=== PATIENT | female | born 1985 | race Caucasian/White ===

== ENCOUNTER 2019-04-10 16:33 | Inpatient (IN) | payer BC ==
[~2019-04-10] VITALS: Ht 162.6 cm; Wt 98.1 kg
[2019-04-10] MEDS ORDERED: AZITHROMYCIN 500 MG TABLET PO ONE (17:00)
[2019-04-10] MEDS ORDERED: PLEASE ENTER ALLERGIES MC SCH (17:00)
[2019-04-10] MEDS ORDERED: BETAMETHASONE 6 MG/ML, 5ML IM SCH (17:00)
[2019-04-10] MEDS ORDERED: BETAMETHASONE 6 MG/ML, 5ML IM ONE (17:01)
[2019-04-10] MEDS ORDERED: AZITHROMYCIN 500 MG TABLET ONE (17:01)
[2019-04-10 17:28] LABS: BASOPHILS # (AUTO) 0.03 x10^3/uL (0-0.1); BASOPHILS % (AUTO) 0 % (0-1); EOSINOPHILS % (AUTO) 2 % (1-7); LYMPHOCYTES # (AUTO) 2.02 x10^3/uL (1-3.4); LYMPHOCYTES % (AUTO) 24 % (22-44); MD NO; MEAN CORPUSCULAR HEMOGLOBIN 32.7 pg (27.0-34.8); MEAN CORPUSCULAR HGB CONC 33.7 g/dL (32.4-35.8); MEAN CORPUSCULAR VOLUME 97.1 fL (80-100); MONOCYTES # (AUTO) 0.44 x10^3/uL (0.2-0.8); MONOCYTES % (AUTO) 5 % (2-9); NEUTROPHILS % (AUTO) 69 % (42-75); PLATELET COUNT 356 x10^3/uL (130-400); RED BLOOD COUNT 3.97 x10^6/uL (3.82-5.3); RED CELL DISTRIBUTION WIDTH 12.7 % (9.6-15.2)
[2019-04-10] MEDS: LACTATED RINGERS 1,000 ML IV SCH ×2 (17:48→23:16)
[2019-04-10] MEDS ORDERED: AMPICILLIN 2 GM in SODIUM CHLORIDE 0.9% 100 ML IV SCH ×2 (18:00→18:49)
[2019-04-10 18:06] LABS: MICROSCOPIC INDICATED
[2019-04-10 18:18] VITALS: BP 115/70
[2019-04-10] MEDS ORDERED: MAGNESIUM SULF. PMX 20GM/500ML 500 ML IV SCH (19:46)
[2019-04-10] MEDS ORDERED: LACTATED RINGERS 1,000 ML IV PRN (19:47)
[2019-04-10] MEDS ORDERED: MAGNESIUM SULFATE PMX 4GM/100M 100 ML ONE (19:49)
[2019-04-10] MEDS ORDERED: MAGNESIUM SULFATE PMX 2GM/50ML 50 ML ONE (19:49)
[2019-04-10] MEDS ORDERED: MAGNESIUM SULFATE PMX 4GM/100M 100 ML IVPB ONE (20:00)
[2019-04-10] MEDS ORDERED: MAGNESIUM SULFATE PMX 2GM/50ML 50 ML IVPB ONE (20:00)
[2019-04-10] MEDS: metFORMIN XR 500 MG TAB.ER.24H PO SCH (21:06)
[2019-04-10] MEDS ORDERED: OXYTOCIN 30U/ 0.9% NaCL 500ML 500 ML ONE (22:42)
[2019-04-10] MEDS ORDERED: LIDOCAINE 1%, 20ML ONE (22:42)
[2019-04-10] MEDS ORDERED: MISOPROSTOL 200 MCG TABLET ONE (22:43)
[2019-04-10] MEDS ORDERED: FENTANYL/BUPIV./NS/PF 250 ML EPIDCONT SCH (22:47)
[2019-04-10 22:54] VITALS: BP 111/69
[2019-04-10] MEDS ORDERED: BUPIVACAINE 0.25% ONE (23:16)
[2019-04-10] MEDS ORDERED: LIDOCAINE/PF 1.5% EPI 1:200K, 10 ML ONE (23:20)
[2019-04-11] MEDS ORDERED: SIMETHICONE 80 MG CHEW TAB PO PRN (01:30)
[2019-04-11] MEDS ORDERED: ONDANSETRON 2MG/ML, 2ML IV PRN (01:30)
[2019-04-11] MEDS ORDERED: IBUPROFEN 600 MG TABLET PO PRN (01:30)
[2019-04-11] MEDS ORDERED: BISACODYL 10 MG SUPP PR PRN (01:30)
[2019-04-11] MEDS ORDERED: MISOPROSTOL 200 MCG TABLET PR PRN (01:30)
[2019-04-11] MEDS ORDERED: CALCIUM CARBONATE 500 MG TAB.CHEW PO PRN (01:30)
[2019-04-11] MEDS ORDERED: HYDROcodone/APAP 5/325 TABLET PO PRN ×2 (01:30)
[2019-04-11] MEDS ORDERED: ACETAMINOPHEN 325 MG TABLET PO PRN ×2 (01:30)
[2019-04-11] MEDS ORDERED: OXYTOCIN 30U/ 0.9% NaCL 500ML 500 ML ONE (01:32)
[2019-04-11] MEDS: OXYTOCIN 30U/ 0.9% NaCL 500ML 500 ML IV SCH ×13 (01:34→21:09)
[2019-04-11 03:40] VITALS: BP 107/68
[2019-04-11 06:23] LABS: MEAN CORPUSCULAR HEMOGLOBIN 32.9 pg (27.0-34.8); MEAN CORPUSCULAR VOLUME 96.9 fL (80-100); PLATELET COUNT 336 x10^3/uL (130-400); RED BLOOD COUNT 3.96 x10^6/uL (3.82-5.3); RED CELL DISTRIBUTION WIDTH 12.5 % (9.6-15.2)
[2019-04-11 06:37] LABS: BASOPHILS % (AUTO) 0 % (0-1); EOSINOPHILS % (AUTO) 0 % (1-7); LYMPHOCYTES # (AUTO) 1.16 x10^3/uL (1-3.4); LYMPHOCYTES % (AUTO) 6 % (22-44); MD SCAN; MONOCYTES # (AUTO) 0.74 x10^3/uL (0.2-0.8); MONOCYTES % (AUTO) 4 % (2-9); NEUTROPHILS # (AUTO) 16.84 x10^3/uL (1.8-6.8); NEUTROPHILS % (AUTO) 90 % (42-75)
[2019-04-11] MEDS: metFORMIN XR 500 MG TAB.ER.24H PO SCH (07:32)
[2019-04-11 08:00] VITALS: BP 102/67
[2019-04-11] MEDS: PRENATAL VIT/IRON/FA 1 EACH TABLET PO SCH (09:20)
[2019-04-11] MEDS: DOCUSATE 100 MG CAPSULE PO PRN (09:20)
[2019-04-11 12:15] VITALS: BP 100/67
[2019-04-11 19:36] VITALS: BP 99/66
[2019-04-11] MEDS: metFORMIN XR 500 MG TAB.ER.24H HOMEMEDPO SCH (21:00)
[2019-04-12 00:18] VITALS: BP 94/61
[2019-04-12] MEDS: OXYTOCIN 30U/ 0.9% NaCL 500ML 500 ML IV SCH ×2 (07:09→17:09)
[2019-04-12] MEDS: metFORMIN XR 500 MG TAB.ER.24H HOMEMEDPO SCH ×2 (07:20→21:00)
[2019-04-12 07:55] VITALS: BP 99/67
[2019-04-12] MEDS ORDERED: AMOXICILLIN/CLAV 875-125MG TABLET PO SCH (12:30)
[2019-04-12 12:40] VITALS: BP 108/68
[2019-04-12] MEDS: PRENATAL VIT/IRON/FA 1 EACH TABLET PO SCH (14:05)
[2019-04-12] MEDS: DOCUSATE 100 MG CAPSULE PO PRN (14:06)
[2019-04-12 16:40] VITALS: BP 110/75
[2019-04-12 21:27] VITALS: BP 115/78
[2019-04-13] MEDS: OXYTOCIN 30U/ 0.9% NaCL 500ML 500 ML IV SCH (03:09)
[2019-04-13 09:00] VITALS: BP 104/72
[2019-04-13] MEDS ORDERED: IBUP-1222 PO (14:03)
[2019-04-13] MEDS ORDERED: DOCU-131 PO (14:04)
== END 2019-04-13 17:31 | disposition home or self-care (01) | DRG 805 ==
LOC: LDOP 16:33 → LDIP 17:09 → 2NW 04-11 03:11
PROVIDERS: ADMIT Obstetrics & Gynecology; ATTEND Obstetrics & Gynecology
PROC: 10E0XZZ Delivery of Products of Conception, External Approach (ICD-10-PCS; principal; 2019-04-11)
PROC: 3E0S3BZ Introduction of Anesthetic Agent into Epidural Space, Percutaneous Approach (ICD-10-PCS; 2019-04-11)
PROC: 00HU33Z Insertion of Infusion Device into Spinal Canal, Percutaneous Approach (ICD-10-PCS; 2019-04-11)
PROC: 4A1H74Z Monitoring of Products of Conception, Cardiac Electrical Activity, Via Natural or Artificial Opening (ICD-10-PCS; 2019-04-11)
PROC: 10H073Z Insertion of Monitoring Electrode into Products of Conception, Via Natural or Artificial Opening (ICD-10-PCS; 2019-04-11)
DX: O42.913 Preterm premature rupture of membranes, unspecified as to length of time between rupture and onset of labor, third trimester (principal); O60.14X0 Preterm labor third trimester with preterm delivery third trimester, not applicable or unspecified; Z37.0 Single live birth; O76 Abnormality in fetal heart rate and rhythm complicating labor and delivery; O99.52 Diseases of the respiratory system complicating childbirth; J45.909 Unspecified asthma, uncomplicated; O24.424 Gestational diabetes mellitus in childbirth, insulin controlled; Z3A.32 32 weeks gestation of pregnancy; Z80.3 Family history of malignant neoplasm of breast; Z82.49 Family history of ischemic heart disease and other diseases of the circulatory system; Z83.3 Family history of diabetes mellitus; Z80.41 Family history of malignant neoplasm of ovary; Z88.8 Allergy status to other drugs, medicaments and biological substances
CPT/HCPCS: 36415; 76815; 81001; 82803; 82947; 82962; 83735; 85025; 86592; 86850; 86900; 87070; 87075; 87077; 87081; 87147; 87186; 87205; 88307; 89060; G0378; J0290; J0702; J3490; J2590; J3010; J3475; J7120; Q0114